=== PATIENT | female | born 1945 | race Caucasian/White ===

== ENCOUNTER 2019-07-21 00:43 | Day surgery (SDC) | payer MEDICARE, SELFPAY ==
[2019-07-15 10:26] VITALS: BMI 22.6
[2019-07-21 07:56] VITALS: BP 129/67; PULSE 70; RESP 16; TEMP 36.3; O2SAT 96
[2019-07-21] MEDS: LACTATED RINGERS 1,000 ML 150 ML IV CONT ×2 (08:16→09:28)
--- NOTE | 2019-07-21 08:55 | WPDANESEPPF ---
Anes - Initial Pre Proc Eval Procedure: Operation Date: 07/21/19 09:00 Proposed Procedures p Screening Colonoscopy - Theodore Birmingham MD Date/Time: 07/21/19 08:55 Surgeon: Theodore Birmingham MD Pre Op Diagnosis: family hx colon CA Patient Data Age: 74 Gender: F Height: 5 ft 4 in Weight: 59.2 kg Last Vital Signs Temp 97.3 F L 07/21/19 07:56 Pulse 70 07/21/19 07:56 Resp 16 07/21/19 07:56 BP 129/67 07/21/19 07:56 Pulse Ox 96 07/21/19 07:56 Allergies Allergy/AdvReac Type Severity Reaction Status Date / Time codeine AdvReac Severe VOMITING Verified 07/21/19 07:55 Home Medications Medication Instructions Recorded Confirmed Type buspirone 15 mg PO DAILY 07/15/19 07/15/19 History fluoxetine 20 mg PO DAILY 07/15/19 07/15/19 History metoclopramide HCl 5 mg PO BID 07/15/19 07/15/19 History nifedipine 60 mg PO DAILY 07/15/19 07/15/19 History omeprazole 20 mg PO DAILY 07/15/19 07/15/19 History trazodone 50 mg PO DAILY 07/15/19 07/15/19 History Patient hx anesthesia problems: none Family hx anesthesia problems: none [facility] Past Medical History Medical History (Updated 07/21/19 @ 08:55 by Rigoberto Purcell MD) GERD (gastroesophageal reflux disease) Scleroderma Anes - Eval Final PreProcedure Day of Procedure 07/21/19 08:55 Patient weight: normal Heart: regular rate and rhythm Lungs: clear to auscultation Airway: Mallampati scale class III Neurological: alert and oriented Last oral intake: >/= 8 hours ASA classification: II Emergent: no Anesthetic plan: proceed Anesthesia type and monitoring: general GIVS and standard monitoring Informed Consent: The patient's anesthetic plan and its attendant risks and benefits were discussed with the patient/family/POA. Questions were solicited and answers provided to the satisfaction of the patient/family/POA.
--- NOTE | 2019-07-21 09:18 | P.CONGI_ITS ---
Assessment and Plan Additional Plan This is a 74-year-old white female patient seen in evaluation at the request of Dr. Leno Michelle. Patient presents for screening colonoscopy. Her current weight appetite bowel movements are normal. She denies abdominal pain. She denies blood in her stools. Her weight has remained stable. Family history is significant her sister had colon cancer. There are other family members with colon polyps. Past medical history is significant for scleroderma. She has been treated for GERD. Medications include buspirone, fluoxetine, metoclopramide, nifedipine, omeprazole, and trazodone. no known drug allergies. Physical exam reveals patient to be alert. Vital signs stable. HEENT exam unremarkable. Lungs are clear to auscultation and percussion. Heart is without murmur or extra sounds. Abdominal exam bowel sounds are present soft nontender with no organomegaly. Digital external rectal exam is normal. Impression 1. Family history of colon cancer in sister. 2. Family history of colon polyps. Plan is for surveillance colonoscopy now. High-fiber diet is advised. Further recommendations will be given after endoscopy. GI Consult Note Consult date/time: 07/21/19 09:18 HPI: Jenifer Sozua is a 74 year old female [facility] Past Medical History Medical History (Updated 07/21/19 @ 08:55 by Rigoberto Purcell MD) GERD (gastroesophageal reflux disease) Scleroderma Meds Home Medications and Allergies Home Medications Medication Instructions Recorded Confirmed Type buspirone 15 mg PO DAILY 07/15/19 07/15/19 History fluoxetine 20 mg PO DAILY 07/15/19 07/15/19 History metoclopramide HCl 5 mg PO BID 07/15/19 07/15/19 History nifedipine 60 mg PO DAILY 07/15/19 07/15/19 History omeprazole 20 mg PO DAILY 07/15/19 07/15/19 History trazodone 50 mg PO DAILY 07/15/19 07/15/19 History Allergies Allergy/AdvReac Type Severity Reaction Status Date / Time codeine AdvReac Severe VOMITING Verified 07/21/19 07:55 Vital Signs Vital Signs - 24 hr 07/21/19 07:56 Temperature 36.3 C L Pulse Rate 70 Respiratory Rate 16 Blood Pressure 129/67 Pulse Oximetry 96
[2019-07-21 09:54] VITALS: BP 122/69; PULSE 72; RESP 16; O2SAT 100
[2019-07-21 10:04] VITALS: BP 124/70; PULSE 70; RESP 16; O2SAT 100
[2019-07-21 10:14] VITALS: BP 133/75; PULSE 71; RESP 14; O2SAT 99
== END 2019-07-21 10:28 | disposition home or self-care (01) ==
PROVIDERS: PCP Family Medicine Adolescent Medicine; Visit Provider Internal Medicine Gastroenterology
PROC: 0DJD8ZZ Inspection of Lower Intestinal Tract, Via Natural or Artificial Opening Endoscopic (ICD-10-PCS; CPT 45378; principal; 2019-07-21 09:00)
DX: Z12.11 Encounter for screening for malignant neoplasm of colon (principal); K63.5 Polyp of colon; K57.30 Diverticulosis of large intestine without perforation or abscess without bleeding; K64.8 Other hemorrhoids; Z80.0 Family history of malignant neoplasm of digestive organs; Z83.71 Family history of colonic polyps; M34.9 Systemic sclerosis, unspecified; K21.9 Gastro-esophageal reflux disease without esophagitis
CPT/HCPCS: 45385; 88305; J2704; J7120